=== PATIENT | male | born 1955 | race Caucasian/White ===

== ENCOUNTER 2019-03-31 04:42 | Inpatient (IN) ==
--- NOTE | 2019-03-17 08:43 | EKG Report ---
Test Performed on : 03/17/2019 08:21:49 AM Test Reason : PAT Blood Pressure : / mmHG Vent. Rate : 071 BPM Atrial Rate : 071 BPM P-R Int : 156 ms QRS Dur : 094 ms QT Int : 376 ms P-R-T Axes : 074 069 068 degrees QTc Int : 408 ms Normal sinus rhythm. Normal ECG No previous ECGs available Confirmed by Elias JENSEN, Bharat Davis ([id number]) on 03/17/2019 10:24:10 AM
[2019-03-17 08:58] LABS: URINE SOURCE CLEAN CATCH
[2019-03-17 09:07] LABS: BASO# 0.03 X1000 (0.0-0.2); BASO% 0.6 % (0.0-0.8); EOS# 0.11 X1000 (0.0-0.7); EOS% 2.1 % (0.0-10.0); HEMATOCRIT 46.9 % (42.0-52.0); HEMOGLOBIN 15.8 g/dL (14.0-18.0); LYMPH# 1.33 X1000 (1.2-3.4); LYMPH% 24.8 % (20.5-51.1); MCH 30.6 PG (27-31); MCHC 33.7 g/dL (33-37); MCV 90.9 FL (81-99); MONO# 0.48 X1000 (0.11-0.59); MPV 10.9 FL (7.4-10.4); NEUT# 3.41 X1000 (1.4-6.5); NEUT% 63.5 % (42.2-75.2); PLT 206 X1000 (130-400); RBC 5.16 XMIL (4.7-6.1); RDW 12.2 % (11.5-14.5); WBC 5.36 X1000 (4.8-10.8)
[2019-03-17 09:11] LABS: BILIRUBIN URINE NEGATIVE (NEGATIVE); BLOOD URINE NEGATIVE (NEGATIVE); COLOR YELLOW; GLUCOSE URINE NEGATIVE (NEGATIVE); KETONE URINE NEGATIVE (NEGATIVE); LEUKOCYTES URINE NEGATIVE (NEGATIVE); NITRITE URINE NEGATIVE (NEGATIVE); PH URINE 6.5; PROTEIN URINE NEGATIVE (NEGATIVE); SP GRAVITY URINE 1.003; TURBIDITY URINE CLEAR (CLEAR); UROBILINOGEN URINE NORMAL (NORMAL)
[2019-03-17 09:13] LABS: UR EPITHELIAL CELLS <10 /HPF (<10); URINE BACTERIA NEGATIVE /HPF; URINE RBC <10 /HPF (<10); URINE WBC <10 /HPF (<10)
[2019-03-17 09:15] LABS: PROTIME 14.1 Seconds (11.0-16.0)
[2019-03-17 09:16] LABS: PTT 35.7 Seconds (22.3-41.8)
[2019-03-17 09:26] LABS: AGAP 9; BUN 18 mg/dL (8-22); CALCIUM 9.8 mg/dL (8.8-10.2); CHLORIDE 102 mmol/L (98-107); COSMO 281; ESTIMATED GFR > 60; GLUCOSE 118 mg/dL (70-104); POTASSIUM 4.1 mmol/L (3.5-5.1); SODIUM 139 mmol/L (136-145); TCO2 28 mmol/L (25-35)
[2019-03-31] MEDS ORDERED: KEFZOL 1 GM/D5W 2 GM/100 ML IVPB ONE (05:53)
[2019-03-31] MEDS ORDERED: LR 1,000 ML ONE (05:53)
[2019-03-31] MEDS ORDERED: COLACE ONE (05:55)
[2019-03-31] MEDS ORDERED: PEPCID ONE (05:56)
[2019-03-31] MEDS ORDERED: LYRICA ONE (05:56)
[2019-03-31] MEDS ORDERED: REGLAN ONE (05:56)
[2019-03-31] MEDS ORDERED: CELEBREX ONE (05:56)
[2019-03-31] MEDS ORDERED: CYKLOKAPRON 1,000 MG/NS 1,000 MG/100 ML IVPB ONE (06:38)
[2019-03-31] MEDS ORDERED: SODIUM CHLORIDE 0.9% ONE (06:38)
[2019-03-31] MEDS ORDERED: MARCAINE 0.25% PF ONE (06:38)
[2019-03-31] MEDS ORDERED: DURAMORPH ONE (06:38)
[2019-03-31] MEDS ORDERED: TORADOL ONE (06:38)
[2019-03-31] MEDS ORDERED: EXPAREL 1.3% ONE (06:39)
[2019-03-31] MEDS ORDERED: NEOSPORIN G.U. IRRIGANT ONE (06:39)
[2019-03-31] MEDS ORDERED: QUELICIN (DOSE) ONE (06:46)
[2019-03-31] MEDS ORDERED: ROBINUL ONE (06:46)
[2019-03-31] MEDS ORDERED: STERILE WATER INJ. ONE (06:46)
[2019-03-31] MEDS ORDERED: XYLOCAINE-MPF 2% ONE (06:46)
[2019-03-31] MEDS ORDERED: NORCURON ONE (06:46)
[2019-03-31] MEDS ORDERED: DIPRIVAN 1% ONE (06:48)
[2019-03-31] MEDS ORDERED: FENTANYL ONE (06:48)
[2019-03-31] MEDS ORDERED: OFIRMEV 1000 MG/ISOTONIC SOLN 1,000 MG/100 ML BOTTLE ONE (07:29)
[2019-03-31] MEDS ORDERED: NEOSTIGMINE ONE (07:29)
[2019-03-31] MEDS ORDERED: ZOFRAN ONE (07:29)
[2019-03-31 07:56] LABS: URINE SOURCE CATH
[2019-03-31 08:00] LABS: BILIRUBIN URINE NEGATIVE (NEGATIVE); BLOOD URINE NEGATIVE (NEGATIVE); COLOR YELLOW; GLUCOSE URINE NEGATIVE (NEGATIVE); KETONE URINE NEGATIVE (NEGATIVE); LEUKOCYTES URINE NEGATIVE (NEGATIVE); NITRITE URINE NEGATIVE (NEGATIVE); PROTEIN URINE NEGATIVE (NEGATIVE); SP GRAVITY URINE 1.017; TURBIDITY URINE CLEAR (CLEAR); UROBILINOGEN URINE NORMAL (NORMAL)
[2019-03-31 08:01] LABS: UR EPITHELIAL CELLS <10 /HPF (<10); URINE BACTERIA NEGATIVE /HPF; URINE RBC <10 /HPF (<10); URINE WBC <10 /HPF (<10)
[2019-03-31] MEDS: DILAUDID ONE ×9 (09:17→16:30)
[2019-03-31] MEDS ORDERED: NS 1,000 ML ONE (09:45)
--- NOTE | 2019-03-31 10:02 | Diag Imaging Result Doc PS360 ---
EXAM: SHOULDER 1 VIEW RIGHT HISTORY: R TSA TECHNIQUE: Portable right shoulder single view COMPARISON: None. FINDINGS: There has been orthopedic replacement of the right shoulder. There appears to be good positioning in the glenoid and humeral shaft. No fracture. No separation at the common clavicular joint. Electronically signed by Basil Britt 03/31/2019 9:59 AM
[2019-03-31] MEDS: OXY IR ONE ×2 (10:08→16:29)
--- NOTE | 2019-03-31 10:25 | OPERATIVE NOTE ---
PROCEDURE DATE: 03/31/2019 PREOPERATIVE DIAGNOSIS: Degenerative osteoarthritis, right glenohumeral joint. POSTOPERATIVE DIAGNOSIS: Degenerative osteoarthritis, right glenohumeral joint. PROCEDURE: Right reverse total shoulder arthroplasty, DePuy Delta Xtend, size 14, Press-Fit stem, a 42 + 9 humeral cup, a 42 eccentric Glenosphere and a standard metaglene. SURGEON: Oz Aleman MD 1ST NUTRITION SERVICES WORKER: ALISON Delgadillo. SECOND NUTRITION SERVICES WORKER: Torey Zapata RN. ANESTHESIA: General. IV FLUIDS: 1500 mL lactated Ringer's. ESTIMATED BLOOD LOSS: 250 mL. COMPLICATIONS: None. INDICATION: The patient is a pleasant, 63-year-old male with a chronic history of worsening pain and discomfort of his right shoulder. He has had significant limited range of motion and weakness with strength testing. X-rays revealed significant degenerative osteoarthritis and recommendation to proceed with right reverse total shoulder arthroplasty was offered. Risks and benefits of surgery were explained, including the risks of anesthesia, , bleeding, infection, failure to relieve pain, postoperative stiffness, nerve injury, blood clots, and other imponderables. All questions were answered. Patient and family wished to proceed with surgery. DETAILS OF OPERATION: The patient was taken to the operating room and placed supinely on the operating table. Once adequate anesthesia was obtained, the patient was placed in a semi-Luong beach-chair position. The right shoulder was subsequently prepped and draped in usual sterile fashion. A standard deltopectoral incision was made with a skin knife. Hemostasis was obtained using electrocautery. The deltopectoral interval was then developed. Mao retractors were placed. The clavipectoral fascia was elevated as well as conjoined tendon and retractor was placed deep to conjoined tendon. Attention was then turned to subscapular tendon. A stay suture was placed and approximately 1 cm medial to the insertion, then it was released. Inspection of the posterior and superior aspect of the rotator cuff revealed significant thinning and a small tear and given the patient's pathological findings, proceeded with a reverse shoulder arthroplasty. Release of the biceps tendon was conducted. A starting reamer was then passed. Sequential reaming was conducted up to size 14. Intramedullary guide with the proximal humeral cutting block was pinned in position and placed in approximately 15 degrees of retroversion and humeral head cutting block was pinned in position. The humeral head was then resected. A protective disk was then placed. A rongeur was used to remove the inferior osteophyte. Attention was then turned to the glenoid where circumferential dissection was conducted. Circumferential dissection was performed with a deep knife. The guide was then placed in position. Guide pin was then placed. Reaming was then conducted. The central hole was then dilated. The wound was copiously irrigated with antibiotic pulsatile lavage. A standard metaglene was then placed. Three locking screws were placed and 1 nonlocking screw. It had good purchase. The wound was copiously once again. A 42 eccentric glenosphere was then placed with the eccentricity placed inferiorly. Attention was then turned to the proximal humerus where the intramedullary guide was placed in position. Proximal humerus was reamed. A size 14 Press-Fit stem was then impacted and had good fit. Trial cup size then placed and 42+ 9 humeral cup had excellent stability and range of motion. The trial cup was removed. The wound was copiously with antibiotic pulsatile lavage. A 42+ 9 humeral cup was then impacted and the shoulder was reduced, carried through range of motion. It had excellent stability and range of motion. Exparel was placed in deep soft tissue. The wound was copiously irrigated once again. A #2 FiberWire was then used to repair the subscapularis tendon. Remaining portion of the Exparel was placed in deep soft tissue, as well as subcutaneous tissue. The wound was copiously once again. 2-0 Vicryl was then used to repair the subcutaneous tissue, followed by running 2-0 Prolene. Benzoin and Steri-Strips were applied. Adaptic, sterile 4 x 4's, ABD pad, and tape were applied to the right shoulder, followed by shoulder immobilizer. All counts were correct. The patient tolerated the procedure well and was transferred to the recovery room in stable condition. cc: Oz Aleman MD
[2019-03-31] MEDS ORDERED: ZOFRAN PO PRN (10:30)
[2019-03-31] MEDS ORDERED: OXY IR PO PRN (10:30)
[2019-03-31] MEDS ORDERED: MORPHINE IV PRN ×3 (10:30)
[2019-03-31] MEDS ORDERED: ZYLOPRIM PO PRN (11:50)
[2019-03-31] MEDS ORDERED: NAPROSYN PO PRN (11:50)
[2019-03-31] MEDS ORDERED: CYKLOKAPRON 1,000 MG in NS 100 ML IV ONE (13:00)
[2019-03-31] MEDS: OXY IR PO PRN ×3 (13:56→22:40)
[2019-03-31] MEDS: KEFZOL 2 GM/D5W 2 GM/50 ML IVPB IV SCH ×2 (15:13→22:32)
[2019-03-31] MEDS: NS 1,000 ML IV SCH (16:30)
[2019-03-31] MEDS ORDERED: CRESTOR PO SCH (21:00)
[2019-03-31] MEDS: PERIDEX MT SCH (22:32)
[2019-04-01] MEDS: NS 1,000 ML IV SCH (00:59)
[2019-04-01] MEDS: OXY IR PO PRN ×2 (02:53→06:39)
[2019-04-01 06:35] LABS: HEMATOCRIT 36.2 % (42.0-52.0); HEMOGLOBIN 11.8 g/dL (14.0-18.0)
[2019-04-01 06:59] LABS: AGAP 8; BUN 19 mg/dL (8-22); CALCIUM 8.3 mg/dL (8.8-10.2); CHLORIDE 95 mmol/L (98-107); COSMO 270; CREATININE 0.9 mg/dL (0.7-1.2); ESTIMATED GFR > 60; GLUCOSE 131 mg/dL (70-104); POTASSIUM 4.2 mmol/L (3.5-5.1); SODIUM 133 mmol/L (136-145); TCO2 30 mmol/L (25-35)
[2019-04-01 07:24] VITALS: BP 125/67
[2019-04-01] MEDS: PERIDEX MT SCH (08:52)
[2019-04-01] MEDS ORDERED: DIOVAN PO SCH (09:00)
[2019-04-01] MEDS ORDERED: GLUCOPHAGE XR PO SCH (09:00)
[2019-04-01] MEDS ORDERED: HYDROCHLOROTHIAZIDE PO SCH (09:00)
--- NOTE | 2019-04-01 10:46 | ORTHOPAEDICS PROGRESS NOTE ---
DATE: 04/01/2019 SUBJECTIVE: The patient is a pleasant, 63-year-old male who is one day status post right reverse total shoulder arthroplasty. He is currently resting comfortably. OBJECTIVE: On physical examination, the patient's dressing is intact. He is grossly neurovascularly intact distally. Able to flex all his fingers. Good elevator installer strength. LABS: Pending. IMPRESSION: Postoperative day #1 status post right reverse shoulder arthroplasty. PLAN: At this time we will plan on discharging home later this morning. We will arrange for outpatient physical therapy. He will follow up in the office on 04/13/2019. cc: Oz Aleman MD
== END 2019-04-01 09:36 | disposition home or self-care (01) | DRG 483 ==
LOC: SURHOLD 04:42 → 4N 09:14
PROVIDERS: ADMIT Orthopaedic Surgery Adult Reconstructive Orthopaedic Surgery; ATTEND Orthopaedic Surgery Adult Reconstructive Orthopaedic Surgery
CPT/HCPCS: 73020; 80048; 81001; 85014; 85018; 85025; 85610; 85730; 86850; 86900; 86901; 88305; 88311; 93005; 93010; 94760; A9270; C1713; C9290; J0131; J0330; J0690; J1170; J1885; J2270; J2274; J2275; J2405; J3010; J7030; J7120; Q9974; S0020